=== PATIENT | female | born 1970 | race Caucasian/White ===

== ENCOUNTER → 2021-04-28 | Outpatient (CLI) | payer MEDICARE, OTHER ==
[2021-05-04 09:15] LABS: DRVVT 51.8 sec (0.0-47.0); DRVVT CONFIRM 1.6 ratio (0.8-1.2); DRVVT MIX 51.1 sec (0.0-40.4); HEXAGONAL PHASE PHOSPHOLIPID 27 sec (0-11); LUPUS REFLEX INTERPRETATION Comment: (.); PT 9.5 sec (9.1-12.0); PT 1:1NP 9.8 sec (9.1-12.0); PTT-LA 60.1 sec (0.0-51.9); PTT-LA MIX 60.5 sec (0.0-48.9); THROMBIN TIME 17.4 sec (0.0-23.0)
[2021-05-13 18:09] LABS: APTT 33.6 sec (.); VWF COLLAGEN BINDING 1.1 ratio (.)
== END ==
LOC: LAB 15:13
PROVIDERS: Internal Medicine
DX: R79.1 Abnormal coagulation profile (principal); R71.8 Other abnormality of red blood cells
CPT/HCPCS: 85240; 85245; 85246; 85247; 85250; 85611; 85730; 85732